=== PATIENT | male | born 1960 | race Caucasian/White ===

== ENCOUNTER 2021-07-06 15:46 | Emergency (ER) | payer OTHER ==
[~2021-07-06] VITALS: Ht 182.9 cm; Wt 93.2 kg
[~2021-07-06 15:46] MED LIST: COLACE 100100 MG/CAP PO; MOTRIN 600600 MG/TAB PO; NORCO 325 MG-51 TAB PO; NORCO 325 MG-7.1 TAB PO
[2021-07-06 16:00] VITALS: TEMP 98
[2021-07-06 16:59] LABS: COLLECTION METHOD CLEAN CATCH
[2021-07-06 17:09] LABS: BASO # 0.1 (0.0-0.2); BASO % 0.7 % (0.0-2.0); EOS # 0.1 (0.0-0.7); EOS % 1.3 % (0-4.0); GRAN # 4.6 (1.4-6.5); GRAN % 56.3 % (42.2-75.2); HEMATOCRIT 44.7 % (42.0-52.0); HEMOGLOBIN 15.3 g/dl (13.5-18.0); LYMPH # 2.5 (1.2-3.4); LYMPH % 30.2 % (20.0-51.0); MEAN CELL VOLUME 92 fl (80.0-100.0); MEAN CORPUSCULAR HEMOGLOBIN 31 pg (27.0-31.0); MEAN CORPUSCULAR HGB CONC 34 g/dl (33.0-37.0); MEAN PLATELET VOLUME 11.2 fl (7.4-10.4); MONO # 0.9 (0.1-0.6); MONO % 11.3 % (1.7-9.3); PLATELET COUNT 231 K/mm3 (130-400); RED BLOOD COUNT 4.88 M/mm3 (4.20-5.60); REDCELL DISTRIBUTION WIDTH-CV 12.3 % (11.5-14.5)
[2021-07-06 17:15] LABS: PH 7 (5-8); SQUAMOUS EPITHELIAL None Seen /hpf; URINE APPEARANCE Clear; URINE BACTERIA None Seen /hpf; URINE BILIRUBIN Negative (NEGATIVE); URINE BLOOD Negative (NEGATIVE); URINE COLOR Yellow; URINE GLUCOSE Negative (NEGATIVE); URINE KETONE Negative (NEGATIVE); URINE LEUKOCYTE ESTERASE Negative (NEGATIVE); URINE NITRATE Negative (NEGATIVE); URINE PROTEIN(semi-quant) Negative (NEGATIVE); URINE RBC 0-2 /hpf
[2021-07-06 17:29] LABS: ALBUMIN 4.3 gm/dL (3.5-5.0); BILIRUBIN,TOTAL 0.6 mg/dL (0.0-1.0); C-REACTIVE PROTEIN 0.6 mg/dL (0.0-0.9); CALCIUM 9.3 mg/dL (8.4-10.2); CREATININE, serum 1.22 (0.66-1.25); POTASSIUM 4.3 mmol/L (3.4-5.0); TOTAL PROTEIN 8.1 gm/dL (6.4-8.2)
[2021-07-06] MEDS ORDERED: PRINIVIL20 MG PO (17:36)
[2021-07-06] MEDS ORDERED: ASPIRIN E.C. 8181 MG PO (17:36)
[2021-07-06] MEDS ORDERED: HCTZ 25MG TAB25 MG PO (17:37)
[2021-07-06 17:47] LABS: TROPONIN-I 0.013 ng/mL (0.000-0.035)
[2021-07-06] MEDS ORDERED: PRIL40 PO (18:06)
[2021-07-06 18:36] VITALS: BP 118/76; PULSE 89
== END 2021-07-06 18:39 | disposition home or self-care (01) ==
LOC: COL.ER 15:46
PROVIDERS: Nurse Practitioner Primary Care
DX: R07.2 Precordial pain (principal); I10 Essential (primary) hypertension; Z79.899 Other long term (current) drug therapy; Z87.891 Personal history of nicotine dependence
CPT/HCPCS: J7030

== ENCOUNTER → 2021-09-26 | Outpatient (CLI) | payer OTHER ==
[~2021-09-26] MED LIST changes: +ASPIRIN E.C. 8181 MG PO; +HCTZ 25MG TAB25 MG PO; +PRIL40 PO; +PRINIVIL20 MG PO
[2021-09-26 09:15] LABS: CALCIUM 9.7 mg/dL (8.4-10.2); CREATININE, serum 1.27 mg/dL (0.72-1.25); POTASSIUM 4.2 mmol/L (3.5-4.5)
== END ==
LOC: COL.LAB 08:33
DX: I10 Essential (primary) hypertension (principal)